=== PATIENT | female | born 1955 | race Caucasian/White ===

== ENCOUNTER 2018-10-24 05:40 | Day surgery (SDC) | payer OTHER ==
[2018-10-24] VITALS (7 sets, daily range): BP systolic 102–114; BP diastolic 58–74; PULSE 57–66; RESP 10–22; Ht 162.6 cm; Wt 77.0 kg
[~2018-10-24] VITALS: Ht 162.6 cm; Wt 77.0 kg
[2018-10-24] MEDS ORDERED: TROPICAMIDE 1% 15 ML OPH OPER SCH (06:00)
[2018-10-24] MEDS ORDERED: CYCLOPENTOLATE/PHENYLEPH 2 ML OPH OPER SCH (06:00)
[2018-10-24] MEDS ORDERED: SOD CHLORIDE 0.9% 1,000 ML IV SCH (06:00)
[2018-10-24] MEDS ORDERED: DICLOFENAC 0.1% 2.5 ML OPH OPER SCH (06:00)
[2018-10-24] MEDS ORDERED: MOXIFLOXACIN 0.5% 3 ML OPH OPER SCH (06:00)
[2018-10-24] MEDS ORDERED: LIDOCAINE 4% (MPF) 5 ML INJ INJ ONE (06:31)
[2018-10-24] MEDS ORDERED: CARBACHOL 0.01% 1.5 ML OPH INJ IO ONE (06:32)
[2018-10-24] MEDS ORDERED: DEXAMETHASONE 4 MG/ML 1 ML INJ INJ ONE (06:33)
[2018-10-24] MEDS ORDERED: CEFAZOLIN 1 GM INJ INJ ONE (06:34)
[2018-10-24] MEDS ORDERED: DEXAMETHASONE 4 MG/ML 1 ML INJ ONE (06:48)
[2018-10-24] MEDS ORDERED: LIDOCAINE 4% (MPF) 5 ML INJ ONE (06:48)
[2018-10-24] MEDS ORDERED: GENTAMICIN 80 MG INJ ONE (06:48)
[2018-10-24] MEDS ORDERED: EPINEPHrine 1 MG INJ ONE (06:48)
[2018-10-24] MEDS ORDERED: CARBACHOL 0.01% 1.5 ML OPH INJ ONE (06:48)
[2018-10-24] MEDS ORDERED: CEFAZOLIN 1 GM INJ ONE (06:48)
[2018-10-24] MEDS ORDERED: HYDROmorphONE 1 MG/5 ML IV SYRINGE IV PRN ×2 (07:30)
[2018-10-24] MEDS ORDERED: FENTAnyl 50 MCG/ML VIAL IV PRN (07:30)
[2018-10-24] MEDS ORDERED: PROPOFOL 20 ML ONE (07:37)
[2018-10-24] MEDS ORDERED: FENTAnyl 50 MCG/ML VIAL ONE (07:37)
[2018-10-24] MEDS ORDERED: MIDAZOLAM 1 MG/ML 2 ML INJ ONE (07:37)
[2018-10-24] MEDS ORDERED: LIDOCAINE 2% (SDV) 5 ML INJ ONE (08:08)
== END 2018-10-24 09:32 | disposition home or self-care (01) ==
LOC: SDS 05:40 → EDSTATUS 07:30 → SDS 09:32
PROVIDERS: ATTEND Ophthalmology
DX: H25.042 Posterior subcapsular polar age-related cataract, left eye (principal)
CPT/HCPCS: 66984; J0171; J0690; J1100; J1580; J2250; J3010; V2632; Z7512; Z7610